=== PATIENT | male | born 1950 | race Caucasian/White ===

== ENCOUNTER → 2019-06-10 | Outpatient (REF) | payer BC ==
[2019-06-10 14:22] LABS: INR 1.25; PROTHROMBIN TIME 15.5 SECONDS (11.8-14.0)
== END ==
LOC: M LABDRAW1 13:30
PROVIDERS: ATTEND Orthopaedic Surgery
DX: M48.062 Spinal stenosis, lumbar region with neurogenic claudication (principal)